=== PATIENT | female | born 1950 | race Caucasian/White ===

== ENCOUNTER 2017-03-18 20:30 | Emergency (ER) | payer SELFPAY ==
[~2017-03-18] VITALS: Ht 149.9 cm; Wt 50.0 kg
[2017-03-18] MEDS ORDERED: LISINOPRIL10 M1 PO (20:57)
[2017-03-18] MEDS ORDERED: PROZAC10 MG PO (20:57)
[2017-03-18] MEDS ORDERED: KLOR-CON 1010 MEQ PO (20:58)
[2017-03-18] MEDS ORDERED: ADDERALL XR30 MG PO (20:58)
[2017-03-18] MEDS ORDERED: LEVOTHYROXIN25 MC1 PO (20:58)
[2017-03-18] MEDS ORDERED: TRAZODONE50 MG PO (20:59)
[2017-03-18] MEDS ORDERED: RESTORIL15 MG PO (20:59)
[2017-03-18] MEDS ORDERED: NEURONTIN300 MG PO (20:59)
[2017-03-18 22:58] VITALS: BP 128/78
== END 2017-03-18 22:58 | disposition home or self-care (01) | DRG 605 ==
LOC: ED 20:30
DX: S50.11XA Contusion of right forearm, initial encounter (principal); G89.29 Other chronic pain; S00.83XA Contusion of other part of head, initial encounter; M54.6 Pain in thoracic spine; Y08.89XA Assault by other specified means, initial encounter; X50.0XXA Overexertion from strenuous movement or load, initial encounter; Y92.009 Unspecified place in unspecified non-institutional (private) residence as the place of occurrence of the external cause